=== PATIENT | male | born 1990 | race Asian ===

== ENCOUNTER 2017-05-31 15:52 | Emergency (ER) | payer SELFPAY ==
[2017-05-31 16:03] VITALS: BP 109/73
--- NOTE | 2017-05-31 18:21 | ED ---
Throat Pain/Nasal Congestion - HPI Summary HPI Summary: 26 male presents to ED with complaints of left eye irritation, discharge and redness that began 2-3 days ago. Admits to waking up with crusting. Denies right eye discharge or pain. Denies trauma or FB. States the discharge is yellow in color. No other complaints at this time. Does not wear contacts. Does wear glasses. No vision changes. No other medical problems. Has not taken any medications. No allergies. - History of Current Complaint Chief Complaint: EDEyeProblem Time Seen by Provider: 05/31/17 16:15 Hx Obtained From: Patient Onset/Duration: Sudden Onset, Lasting Days, Still Present Severity: Moderate Cough: None PMH/Surg Hx/FS Hx/Imm Hx Endocrine/Hematology History: Denies: Hx Diabetes Cardiovascular History: Denies: Hx Syncope Respiratory History: Denies: Hx Asthma - Surgical History Surgery Procedure, Year, and Place: n/a - Immunization History Immunizations Up to Date: Yes Infectious Disease History: No Infectious Disease History: Denies: Traveled Outside the [place] in Last 30 Days - Family History Known Family History: Positive: None - Social History Alcohol Use: Rare Substance Use Type: Reports: None Smoking Status (MU): Never Smoked Tobacco Review of Systems Constitutional: Negative Positive: Drainage, Erythema, Other - irritation Cardiovascular: Negative Respiratory: Negative Skin: Negative Neurological: Negative All Other Systems Reviewed And Are Negative: Yes Physical Exam Triage Information Reviewed: Yes Vital Signs On Initial Exam: Initial Vitals Temp Pulse Resp BP Pulse Ox 97.2 F 135 20 109/73 99 05/31/17 16:00 05/31/17 16:00 05/31/17 16:00 05/31/17 16:00 05/31/17 16:00 Vital Signs Reviewed: Yes Appearance: Positive: Well-Appearing, No Pain Distress, Well-Nourished Skin: Positive: Warm, Skin Color Reflects Adequate Perfusion, Dry. Negative: Cold, Soft, Cyanosis @, Erythema @ Head/Face: Positive: Normal Head/Face Inspection Eyes: Positive: EOMI, JARRELL, Conjunctiva Inflammed - injected, left eye, Discharge - yellow in color, left eye, Other: - no sign of FB and no history or trauma/FB ENT: Positive: Normal ENT inspection, Hearing grossly normal, Pharynx normal, TMs normal Neck: Positive: Supple, Nontender, No Lymphadenopathy Respiratory/Lung Sounds: Positive: Clear to Auscultation, Breath Sounds Present. Negative: Rales, Rhonchi, Wheezes Cardiovascular: Positive: Normal, RRR, Pulses are Symmetrical in both Upper and Lower Extremities. Negative: Murmur, Rub Neurological: Positive: Normal, Sensory/Motor Intact, Alert, Oriented to Person Place, Time - Tobias Coma Scale Coma Scale Total: 15 Diagnostics - Vital Signs Vital Signs Temp Pulse Resp BP Pulse Ox 05/31/17 16:00 97.2 F 135 20 109/73 99 - Laboratory Lab Statement: Any lab studies that have been ordered have been reviewed, and results considered in the medical decision making process. EENT Course/Dx - Course Course Of Treatment: due to PE findings and HPI appears to be suffering from conjunctivitis of left eye. will treat with polytrim. does not wear contacts. no concern for FB or abrasion. no vision changes or pain. obvious discharge and injection of conjunctiva. No other complaints. Did ask for ear drops to prevent wax build up, as he has suffered previously from cerumen build up. Aware of worsening signs and symptoms to watch out for. Follow up. Do not touch eyes, instructed to wash towels, blankets, pillowcases as highly contagious. - Differential Diagnoses Differential Diagnoses: Cellulitis, Conjunctivitis - Diagnoses Provider Diagnoses: Conjunctivitis, left eye Discharge - Discharge Plan Condition: Stable Disposition: HOME Prescriptions: Carbamide Peroxide 6.5% OTIC* [DEBROX 6.5% Otic*] 5 drop BOTH EARS BID #1 bottle Polymyx/Trimethoprim OPTH* [Polytrim OPHTH*] 1 drop LEFT EYE Q3H #1 btl Patient Education Materials: Conjunctivitis (ED) Referrals: [facility] - Kevin MOSHER [Medical Doctor] - Additional Instructions: Use prescribed drops in ears and eye as directed. Do not touch eyes. Wash hands frequently to prevent spread of germs. Change pillow cases, wash towels, blankets. If symptoms begin in other eye please use drops in that eye as well. Wear glasses as needed. Any new or worsening symptoms please seek medical attention. Follow up with [facility].
== END 2017-05-31 18:27 | disposition home or self-care (01) ==
LOC: ED 15:52
DX: H10.9 Unspecified conjunctivitis (principal)
CPT/HCPCS: 99281

== ENCOUNTER 2019-05-29 16:39 | Emergency (ER) | payer SELFPAY ==
[2019-05-29 19:04] LABS: ABS Eosinophils 0.1 10^3/ul (0-0.6); ABS Lymphocytes 0.8 10^3/ul (1.0-4.8); ABS Monocytes 0.4 10^3/ul (0-0.8); ABS Neutrophils 6.3 10^3/ul (1.5-7.7); Eosinophil % 1.6 %; Hematocrit 46 % (42-52); Hemoglobin 15.9 g/dL (14.0-18.0); Lymphocyte % 10.9 %; Mean Corpuscular HGB Conc 34 g/dL (31-36); Mean Corpuscular Hemoglobin 30 pg (27-31); Mean Corpuscular Volume 86 fL (80-94); Mean Platelet Volume 8.8 fL (7.4-10.4); Platelet Count 213 10^3/uL (150-450); Red Blood Count 5.41 10^6 /uL (4.18-5.48); Red Cell Distribution Width 13 % (10-15); White Blood Count 7.6 10^3/uL (3.5-10.8)
--- NOTE | 2019-05-29 19:04 | ED ---
Shortness of Breath - HPI Summary HPI Summary: 28-year-old male presents with shortness breath for the past month. He states his shortness breath is intermittent. He states that is not currently having such. States was seen at [facility] given some pills which helped with the shortness breath. He states it doesn't change when he does up stairs. He states it mostly happens when he is sitting down. He denies any chest pain. No cough. No bowel pain. No nausea vomiting. Has no medical conditions. No recent travel. No family cardiac history. - History of Current Complaint Chief Complaint: EDShortnessOfBreath Time Seen by Provider: 05/29/19 18:21 - Allergy/Home Medications Allergies/Adverse Reactions: Allergies Allergy/AdvReac Type Severity Reaction Status Date / Time No Known Allergies Allergy Verified 05/29/19 16:47 Home Medications: Home Medications Ciclopirox [[place] Nail Lacquer] 8 % TOPICAL DAILY 05/29/19 [History Confirmed 05/29/19] PMH/Surg Hx/FS Hx/Imm Hx Endocrine/Hematology History: Denies: Hx Diabetes Cardiovascular History: Denies: Hx Syncope Respiratory History: Denies: Hx Asthma - Surgical History Surgery Procedure, Year, and Place: n/a Infectious Disease History: No Infectious Disease History: Denies: Traveled Outside the [place] in Last 30 Days - Family History Known Family History: Positive: None - Social History Alcohol Use: None Substance Use Type: Reports: None Hx Tobacco Use: No Smoking Status (MU): Never Smoked Tobacco Review of Systems Negative: Fever Negative: Chest Pain Positive: Shortness Of Breath. Negative: Cough All Other Systems Reviewed And Are Negative: Yes Physical Exam Triage Information Reviewed: Yes Vital Signs On Initial Exam: Initial Vitals Temp Pulse Resp BP Pulse Ox 98.9 F 110 19 171/96 100 05/29/19 16:42 05/29/19 16:42 05/29/19 16:42 05/29/19 16:42 05/29/19 16:42 Vital Signs Reviewed: Yes Appearance: Positive: Well-Appearing Skin: Positive: Warm, Dry Head/Face: Positive: Normal Head/Face Inspection Eyes: Positive: Normal, Conjunctiva Clear ENT: Positive: Pharynx normal Respiratory/Lung Sounds: Positive: Clear to Auscultation, Breath Sounds Present Cardiovascular: Positive: Normal, RRR Abdomen Description: Positive: Nontender, Soft Bowel Sounds: Positive: Present Musculoskeletal: Positive: Normal Neurological: Positive: Normal Psychiatric: Positive: Normal Procedures - Sedation Patient Received Moderate/Deep Sedation with Procedure: No Diagnostics - Vital Signs Vital Signs Temp Pulse Resp BP Pulse Ox 05/29/19 16:42 98.9 F 110 19 171/96 100 - Laboratory Lab Results: Lab Results 05/29/19 Range/Units 18:53 WBC 7.6 (3.5-10.8) 10^3/uL RBC 5.41 (4.18-5.48) 10^6 /uL Hgb 15.9 (14.0-18.0) g/dL Hct 46 (42-52) % MCV 86 (80-94) fL MCH 30 (27-31) pg MCHC 34 (31-36) g/dL RDW 13 (10-15) % Plt Count 213 (150-450) 10^3/uL MPV 8.8 (7.4-10.4) fL Neut % (Auto) 82.0 % Lymph % (Auto) 10.9 % Lucas % (Auto) 5.2 % Eos % (Auto) 1.6 % Baso % (Auto) 0.3 % Absolute Neuts (auto) 6.3 (1.5-7.7) 10^3/ul Absolute Lymphs (auto) 0.8 L (1.0-4.8) 10^3/ul Absolute Monos (auto) 0.4 (0-0.8) 10^3/ul Absolute Eos (auto) 0.1 (0-0.6) 10^3/ul Absolute Basos (auto) 0.0 (0-0.2) 10^3/ul Absolute Nucleated RBC 0.0 10^3/ul Nucleated RBC % 0.0 Result Diagrams: 05/29/19 18:53 05/29/19 18:53 Lab Statement: Any lab studies that have been ordered have been reviewed, and results considered in the medical decision making process. - Radiology chest Radiology Interpretation Completed By: Radiologist Summary of Radiographic Findings: IMPRESSION: NO ACTIVE CARDIOPULMONARY DISEASE. Course/Dx - Course Course Of Treatment: 28-year-old male presents with shortness breath for the past month. He states his shortness breath is intermittent. He states that is not currently having such. States was seen at [facility] given some pills which helped with the shortness breath. He states it doesn't change when he does up stairs. He states it mostly happens when he is sitting down. He denies any chest pain. No cough. No bowel pain. No nausea vomiting. Has no medical conditions. No recent travel. No family cardiac history. On exam lungs CTA. Chest x-ray normal. D-dimer negative. Will discharge have follow-up [facility]. Patient understands agrees with plan. - Diagnoses Differential Diagnosis/HQI/PQRI: Positive: Bronchitis, Pneumonia, Pulmonary Embolism Provider Diagnoses: Shortness of breath Discharge ED - Sign-Out/Discharge Documenting (check all that apply): Patient Departure - Discharge Plan Condition: Good Disposition: HOME Patient Education Materials: Shortness of Breath (ED) Referrals: No Primary Care Phys,NOPCP [Primary Care Provider] - Additional Instructions: follow up with [place] if develop symptoms again Return to ED if develop any new or worsening symptoms - Billing Disposition and Condition Condition: GOOD Disposition: Home
[2019-05-29 19:19] LABS: Albumin 5.2 g/dL (3.2-5.2); Albumin/Globulin Ratio 2.2 (1-3); BUN/Creatinine Ratio 14.8 (8-20); Calcium 10.1 mg/dL (8.6-10.3); EGFR Non-African American 82.6 (>60); Globulin 2.4 g/dL (2-4); Potassium 3.8 mmol/L (3.5-5.0); Total Bilirubin 0.8 mg/dL (0.2-1.0); Total Protein 7.6 g/dL (6.4-8.9)
[2019-05-29 19:47] VITALS: BP 162/93
== END 2019-05-29 19:45 | disposition home or self-care (01) ==
LOC: ED 16:39
DX: R06.02 Shortness of breath (principal)
CPT/HCPCS: 36415; 71046; 80053; 85025; 85379; 99282

== ENCOUNTER 2019-06-03 15:53 | Emergency (ER) | payer OTHER ==
[2019-06-03] MEDS ORDERED: Omeprazole CAP (NF) 20 MG CAP.DR PO ONE (17:05)
--- NOTE | 2019-06-03 17:16 | ED ---
GI/ HPI - HPI Summary HPI Summary: The pt is a 28 yr old male presenting to [facility] c/o left sided abd pain beginning several days [employer]. He states that he has been having this pain intermittently over the past 2 months with periods of weeks in between each episode. He also complains of high blood pressure. He rates his current pain severity a 5/10. No aggravating or alleviating factors noted. He also reports some feelings of numbness in his abd. - History of Current Complaint Chief Complaint: EDAbdPain Time Seen by Provider: 06/03/19 16:46 Stated Complaint: ABDOMINAL PAIN PER PT Hx Obtained From: Patient Onset/Duration: Started Days Ago, Started Weeks Ago, Still Present Timing: Intermittent, Lasting Days, Lasting Weeks Severity: Moderate Current Severity: Moderate Pain Intensity: 5 Location of Pain: LUQ Associated Signs and Symptoms: Positive: Abdominal Pain, Other: - pos - numbness , high blood pressure Aggravating Factor(s): Nothing Alleviating Factor(s): Nothing - Allergy/Home Medications Allergies/Adverse Reactions: Allergies Allergy/AdvReac Type Severity Reaction Status Date / Time No Known Allergies Allergy Verified 05/29/19 16:47 PMH/Surg Hx/FS Hx/Imm Hx Endocrine/Hematology History: Denies: Hx Diabetes Cardiovascular History: Denies: Hx Syncope Respiratory History: Denies: Hx Asthma - Surgical History Surgical History: None Surgery Procedure, Year, and Place: n/a Infectious Disease History: No Infectious Disease History: Denies: Traveled Outside the [place] in Last 30 Days - Family History Known Family History: Negative: Renal Disease - Social History Alcohol Use: None Substance Use Type: Reports: None Hx Tobacco Use: No Smoking Status (MU): Never Smoked Tobacco Review of Systems Cardiovascular: Other - pos - hypertension Positive: Abdominal Pain Positive: Numbness All Other Systems Reviewed And Are Negative: Yes Physical Exam - Summary Physical Exam Summary: Constitutional: Well-developed, Well-nourished, Alert. (-) Distressed Skin: Warm, Dry HENT: Normocephalic; Atraumatic Eyes: Conjunctiva normal Neck: Musculoskeletal ROM normal neck. (-) JVD, (-) Stridor, (-) Tracheal deviation Cardio: Rhythm regular, rate normal, Heart sounds normal; Intact distal pulses; Radial pulses are 2+ and symmetric. (-) Murmur Pulmonary/Chest wall: Effort normal. (-) Respiratory distress, (-) Wheezes, (-) Rales Abd: Soft, (-) tenderness, (-) Distension, (-) Guarding, (-) Rebound Musculoskeletal: (-) Edema Lymph: (-) Cervical adenopathy Neuro: Alert, Oriented x3 Psych: Mood and affect Normal Triage Information Reviewed: Yes Vital Signs On Initial Exam: Initial Vitals Temp Pulse Resp BP Pulse Ox 98.8 F 122 16 162/100 100 06/03/19 15:54 06/03/19 15:54 06/03/19 15:54 06/03/19 15:54 06/03/19 15:54 Vital Signs Reviewed: Yes Procedures - Sedation Patient Received Moderate/Deep Sedation with Procedure: No Diagnostics - Vital Signs Vital Signs Temp Pulse Resp BP Pulse Ox 06/03/19 15:54 98.8 F 122 16 162/100 100 - Laboratory Lab Statement: Any lab studies that have been ordered have been reviewed, and results considered in the medical decision making process. GIGU Course/Dx - Course Course Of Treatment: Patient is here with vague left upper quadrant pain that comes and goes over the past couple of months. Patient has had shortness of breath associated with that but nothing today. Patient had a workup 5 days ago which included a negative chest x-ray, negative CBC, CMP, d-dimer. Patient has tried Pepcid in the past which did help. Patient appears very anxious about underlying medical conditions and was reassured that he does not have any emergent conditions. Patient's overall well-appearing with a normal exam. Patient started on omeprazole and instructed to follow up with [facility] - Diagnoses Provider Diagnoses: LUQ abdominal pain Discharge ED - Sign-Out/Discharge Documenting (check all that apply): Patient Departure - discharge - Discharge Plan Condition: Stable Disposition: HOME Prescriptions: Omeprazole 20 mg PO QAM 14 Days #14 capsule. Patient Education Materials: Abdominal Pain (ED) Referrals: [facility] [Provider Group] - 3 Days Additional Instructions: PLEASE RETURN TO EMERGENCY DEPARTMENT FOR ANY NEW OR WORSENING SYMPTOMS. Please follow up with your primary care physician. Please make all follow-ups in 1-3 days unless I advise you otherwise. - Billing Disposition and Condition Condition: STABLE Disposition: Home - Attestation Statements Document Initiated by Scribe: Yes Documenting Scribe: Keith Ling Provider For Whom Scribe is Documenting (Include Credential): Donald Kendrick MD Scribe Attestation: I, Keith Ling, scribed for Donald Kendrick MD on 06/03/19 at 1828. Scribe Documentation Reviewed: Yes Provider Attestation: The documentation as recorded by the scribe, Keith Ling accurately reflects the service I personally performed and the decisions made by me, Donald Kendrick MD Status of Scribe Document: Viewed
[2019-06-03 17:23] VITALS: BP 146/85
[2019-06-03] MEDS ORDERED: Pantoprazole TAB * 40 MG TAB PO ONE (18:00)
== END 2019-06-03 17:21 | disposition home or self-care (01) ==
LOC: ED 15:53
DX: R10.12 Left upper quadrant pain (principal); R20.0 Anesthesia of skin
CPT/HCPCS: 99282; A9270-GY